=== PATIENT | male | born 1930 | race Caucasian/White ===

== ENCOUNTER → 2018-04-06 10:18 | Outpatient (CLI) | payer MEDICARE, BC ==
[2016-09-28 14:17] VITALS: BMI 22.5
[~2018-04-06 10:18] MED LIST: BAYER CHEWABLE81 MG PO; PREDNISONE20 MG PO; TENORMIN25 MG PO; ZOCOR20 MG PO
== END | disposition home or self-care (01) ==
LOC: D.MRI 10:18
DX: G31.84 Mild cognitive impairment of uncertain or unknown etiology (principal)

== ENCOUNTER 2018-12-24 11:30 | Emergency (ER) | payer MEDICARE, BC ==
[~2018-12-24] VITALS: Ht 177.8 cm; Wt 55.9 kg
[2018-12-24 11:32] VITALS: Ht 177.8 cm; Wt 55.9 kg
[2018-12-24 12:19] LABS: BASOPHILS 0.5 % (0-2); EOSINOPHILS 2.5 % (0-7); HEMATOCRIT 39.6 % (42.0-54.0); HEMOGLOBIN 12.9 g/dL (13.5-17.5); IMMATURE GRANULOCYTES 0.2 % (0-5); LYMPHOCYTES 24.5 % (15-50); MCH 30.4 pg (26.0-34.0); MCHC 32.6 g/dL (31.0-37.0); MCV 93.4 fL (80.0-100.0); MEAN PLATELET VOLUME 10.2 fL (7.4-10.4); MONOCYTES 11.9 % (2-11); NEUTROPHILS 60.4 % (40-80); RBC 4.24 10x6/uL (4.20-6.10); RDW 13.5 % (11.5-14.5); WBC 5.6 10x3/uL (4.8-10.8)
[2018-12-24 12:20] LABS: PLATELET COUNT 175 10x3/uL (130-400)
[2018-12-24 12:27] LABS: APTT 25.1 SECONDS (22.8-39.4); INR 1.12 (0.85-1.17); PROTIME 13.9 SECONDS (11.6-15.0)
[2018-12-24 12:32] LABS: ALBUMIN 3.3 g/dL (3.4-5.0); ALKALINE PHOSPHATASE 65 U/L (46-116); ALT (SGPT) 18 U/L (10-68); BILIRUBIN - TOTAL 0.66 mg/dL (0.2-1.3); CALC OSMOLALITY 287 mosm/kg (275-300); CALCIUM 8.4 mg/dL (8.5-10.1); CARBON DIOXIDE 27.3 mmol/L (21.0-32.0); CHLORIDE - SERUM 106 mmol/L (98-107); CREATININE - SERUM 1.4 mg/dL (0.6-1.3); POTASSIUM - SERUM 4.2 mmol/L (3.5-5.1); PROTEIN - SERUM 7.1 g/dL (6.4-8.2); SODIUM 142 mmol/L (136-145); UREA NITROGEN 27 mg/dL (7-18); eGFR NON AFRICAN AMERICAN 51 mL/min (90-120)
[2018-12-24 12:34] LABS: GLUCOSE 99 mg/dL (74-106)
[2018-12-24 12:42] LABS: CKMB 2.5 U/L (0.0-3.6); CREATINE KINASE 85 UL (21-232); MAGNESIUM - SERUM 2.2 mg/dL (1.8-2.4); THYROID STIMULATING HORMONE 7.11 uIU/mL (0.36-3.74)
[2018-12-24 12:46] LABS: TROPONIN-I < 0.017 ng/mL (0.000-0.060)
[2018-12-24] MEDS ORDERED: SYNTHROID50 MCG PO (15:23)
[2018-12-24 15:52] VITALS: BP 122/76
== END 2018-12-24 15:59 | disposition home or self-care (01) ==
LOC: D.ER 11:30
PROVIDERS: Family Medicine
DX: E03.9 Hypothyroidism, unspecified (principal); R55 Syncope and collapse; I45.10 Unspecified right bundle-branch block

== ENCOUNTER → 2019-06-08 11:28 | Outpatient (CLI) | payer MEDICARE, BC ==
[2018-12-24 11:32] VITALS: BMI 17.6
[~2019-06-08 11:28] MED LIST changes: +SYNTHROID50 MCG PO
== END | disposition home or self-care (01) ==
LOC: D.HCCARDIO 05-15 13:30
PROVIDERS: ATTEND Internal Medicine Cardiovascular Disease
DX: I35.8 Other nonrheumatic aortic valve disorders (principal)

== ENCOUNTER 2020-05-19 14:02 | Emergency (ER) | payer MEDICARE, BC ==
[~2020-05-19] VITALS: Ht 177.8 cm; Wt 59.0 kg
[2020-05-19 14:13] VITALS: Ht 177.8 cm; Wt 59.0 kg
[2020-05-19 14:43] LABS: HEMOGLOBIN 12.6 g/dL (13.5-17.5); LYMPHOCYTES 37.7 % (15-50); MCH 29.2 pg (26.0-34.0); MCHC 32.3 g/dL (31.0-37.0); MCV 90.3 fL (80.0-100.0); MEAN PLATELET VOLUME 9.1 fL (7.4-10.4); NEUTROPHILS 51.3 % (40-80); PLATELET COUNT 202 10x3/uL (130-400); RBC 4.32 10x6/uL (4.20-6.10); RDW 12.5 % (11.5-14.5); WBC 4.8 10x3/uL (4.8-10.8)
[2020-05-19 15:05] LABS: CALC OSMOLALITY 277 mosm/kg (275-300); CALCIUM 8.4 mg/dL (8.5-10.1); CARBON DIOXIDE 29.8 mmol/L (21.0-32.0); CHLORIDE - SERUM 103 mmol/L (98-107); CREATININE - SERUM 1.3 mg/dL (0.6-1.3); GLUCOSE 94 mg/dL (74-106); POTASSIUM - SERUM 3.4 mmol/L (3.5-5.1); SODIUM 138 mmol/L (136-145); UREA NITROGEN 17 mg/dL (7-18); eGFR NON AFRICAN AMERICAN 55 mL/min (90-120)
[2020-05-19 15:14] LABS: ALBUMIN 3.3 g/dL (3.4-5.0); ALKALINE PHOSPHATASE 71 U/L (30-120); ALT (SGPT) 14 U/L (10-68); AMYLASE - SERUM 43 U/L (25-115); BILIRUBIN - TOTAL 0.77 mg/dL (0.2-1.3); PROTEIN - SERUM 7.3 g/dL (6.4-8.2)
[2020-05-19 15:18] LABS: LIPASE 37 U/L (73-393); TROPONIN-I < 0.017 ng/mL (0.000-0.060)
[2020-05-19 16:50] LABS: BILIRUBIN NEGATIVE (NEGATIVE); GLUCOSE NEGATIVE (NEGATIVE); KETONE NEGATIVE (NEGATIVE); NITRITE NEGATIVE (NEGATIVE); SPECIFIC GRAVITY 1.015 (1.005-1.020); UROBILINOGEN NORMAL (NORMAL)
[2020-05-19 16:52] LABS: WHITE CELLS - URINE 0-5 /hpf (NEGATIVE)
[2020-05-19 16:53] LABS: RED CELLS - URINE OCC /hpf (0-5)
[2020-05-19 17:58] VITALS: BP 154/88
== END 2020-05-19 17:59 | disposition home or self-care (01) ==
LOC: D.ER 14:02
PROVIDERS: Family Medicine
DX: Z71.1 Person with feared health complaint in whom no diagnosis is made (principal); F03.90 Unspecified dementia, unspecified severity, without behavioral disturbance, psychotic disturbance, mood disturbance, and anxiety; I25.2 Old myocardial infarction